=== PATIENT | female | born 1990 | race African-American/Black ===

== ENCOUNTER 2017-04-04 14:39 | Inpatient (IN) | payer OTHER ==
[2017-04-04] MEDS ORDERED: MISOPROSTOL 200 MCG TAB PR (17:00)
[2017-04-04] MEDS ORDERED: IBUPROFEN 600 MG TAB PO (17:00)
[2017-04-04] MEDS ORDERED: BUTORPHANOL 2 MG INJ IV (17:00)
[2017-04-04] MEDS ORDERED: LIDOCAINE 1% (MPF) 30 ML INJ INJ (17:00)
[2017-04-04] MEDS ORDERED: OXYTOCIN 30 UNITS/LR 500 ML IV ×3 (17:00)
[2017-04-04] MEDS ORDERED: CARBOPROST 250 MCG INJ IM (17:00)
[2017-04-04] MEDS: LACTATED RINGER'S 1,000 ML IV ×3 (17:30→23:03)
[2017-04-04] MEDS: AMPICILLIN 2 GM/NS (PMX) 100 ML IV (17:46)
[2017-04-04 18:04] LABS: ADD MAN DIFF? NO
[2017-04-04 18:06] LABS: BASOPHILS % 0.1 % (0.0-2.0); EOSINOPHILS % 0.3 % (0.0-7.0); HEMATOCRIT 41.3 % (37.0-47.0); HEMOGLOBIN 13.8 g/dl (12.0-16.0); LYMPHOCYTES # 1.7 10^3/ul (0.8-2.9); LYMPHOCYTES % 19.3 % (15.0-51.0); MEAN CORPUSCULAR HEMOGLOBIN 30.3 pg (29.0-33.0); MEAN CORPUSCULAR HGB CONC 33.4 g/dl (32.0-37.0); MEAN CORPUSCULAR VOLUME 90.8 fl (82.0-101.0); MEAN PLATELET VOLUME 9.4 fl (7.4-10.4); MONOCYTE # 0.7 10^3/ul (0.3-0.9); MONOCYTES % 7.3 % (0.0-11.0); NEUTROPHIL # 6.4 10^3/ul (1.6-7.5); NEUTROPHILS % 72.7 % (39.0-77.0); PLATELET COUNT 352 10^3/UL (140-415); RED BLOOD COUNT 4.55 10^6/ul (4.20-5.40); RED CELL DISTRIBUTION WIDTH 14.6 % (11.5-14.5)
[2017-04-04 18:06] LABS: WHITE BLOOD COUNT 8.9 10^3/ul (4.8-10.8)
[2017-04-04 18:21] LABS: INR 0.93; PARTIAL THROMBOPLASTIN TIME 28.9 Sec (25.0-35.0); PROTIME 12.5 Sec (11.9-14.9)
[2017-04-04 19:11] LABS: HEPATITIS B SURFACE ANTIGEN NEGATIVE (NEGATIVE)
[2017-04-04] MEDS: AMPICILLIN 1 GM/NS (PMX) 50 ML IV (21:14)
[2017-04-04] MEDS ORDERED: ONDANSETRON 4 MG INJ IV (21:30)
[2017-04-04] MEDS ORDERED: NALOXONE (0.4 MG/ML) INJ IV (21:30)
[2017-04-04] MEDS ORDERED: DIPHENHYDRAMINE 50 MG INJ IV (21:30)
[2017-04-04] MEDS ORDERED: TRIMETHOBENZAMIDE 100 MG/ML VIAL IM (21:30)
[2017-04-04] MEDS ORDERED: FENTAnyl 2MCG/ML-ROPIV 0.2% 100 ML BAG EPI (21:30)
[2017-04-04 21:34] LABS: RAPID PLASMA REAGIN NONREACTIVE (NR)
[2017-04-04] MEDS ORDERED: TERBUTALINE 1 ML (21:52)
[2017-04-04] MEDS: TERBUTALINE 1 MG/ML INJ SC (22:11)
[2017-04-04 22:39] LABS: ALANINE AMINOTRANSFERASE 33 IU/L (13-69); ALBUMIN 3.9 g/dl (3.3-4.9); ALKALINE PHOSPHATASE 149 IU/L (42-121); ANION GAP 16 (8-16); ASPARTATE AMINO TRANSFERASE 33 IU/L (15-46); BILIRUBIN,INDIRECT 0.2 mg/dl (0-1.1); BILIRUBIN,TOTAL 0.2 mg/dl (0.2-1.3); BLOOD UREA NITROGEN 5 mg/dl (7-20); CALCIUM 9.5 mg/dl (8.4-10.2); CARBON DIOXIDE 23 mmol/L (21-31); CHLORIDE 106 mmol/L (97-110); CREATININE 0.49 mg/dl (0.44-1.00); GLUCOSE 80 mg/dl (70-220); POTASSIUM 4.1 mmol/L (3.5-5.1); SODIUM 141 mmol/L (135-144); TOTAL PROTEIN 7.8 g/dl (6.1-8.1); URIC ACID 4.4 mg/dl (3.1-7.9)
[2017-04-04 23:09] LABS: ADD UMIC YES; UR ASCORBIC ACID 40 mg/dL (NEGATIVE); UR BILIRUBIN (Dip) NEGATIVE (NEGATIVE); UR BLOOD (Dip) NEGATIVE (NEGATIVE); UR CLARITY CLEAR (CLEAR); UR COLOR YELLOW (YELLOW); UR GLUCOSE (Dip) NEGATIVE (NEGATIVE); UR KETONES (Dip) 1+ mg/dL (NEGATIVE); UR LEUKOCYTE ESTERASE (Dip) NEGATIVE Leu/ul (NEGATIVE); UR MUCUS FEW /HPF (NONE SEEN); UR NITRITE (Dip) NEGATIVE (NEGATIVE); UR RBC 1 /HPF (0-5); UR SPECIFIC GRAVITY (Dip) 1.024 (1.003-1.030); UR SQUAMOUS EPITHELIAL CELL FEW /HPF (FEW); UR TOTAL PROTEIN (Dip) 1+ mg/dl (NEGATIVE); UR UROBILINOGEN (Dip) NEGATIVE (NEGATIVE); UR WBC 1 /HPF (0-5)
[2017-04-04] MEDS ORDERED: CEFAZOLIN 2 GM/50 ML (PMX) 50 ML IVPB (23:34)
[2017-04-05] MEDS ORDERED: FENTAnyl 50 MCG/ML VIAL (00:10)
[2017-04-05] MEDS ORDERED: METOCLOPRAMIDE 10 MG INJ (00:10)
[2017-04-05] MEDS ORDERED: OXYTOCIN 10 UNIT INJ (00:10)
[2017-04-05] MEDS ORDERED: PHENYLephrine (100 MCG/ML) 5ML SYG (00:10)
[2017-04-05] MEDS ORDERED: morphine SULFATE/PF (10 MG/10 ML) INJ (00:10)
[2017-04-05] MEDS ORDERED: KETAMINE 500 MG INJ (00:29)
[2017-04-05] MEDS: CEFAZOLIN 2 GM/50 ML (PMX) 50 ML IV (00:39)
[2017-04-05] MEDS ORDERED: MIDAZOLAM 1 MG/ML 2 ML INJ (00:56)
[2017-04-05] MEDS: METHYLERGONOVINE 0.2 MG INJ IM (00:56)
[2017-04-05] MEDS ORDERED: EPHEDrine SULFATE 50 MG/5 ML SYG IV (01:00)
[2017-04-05] MEDS ORDERED: IPRATROPIUM (NEB) 0.5 MG/2.5 ML AMP HHN (01:00)
[2017-04-05] MEDS ORDERED: morphine 4 MG/ML VIAL IV (01:00)
[2017-04-05] MEDS ORDERED: MEPERIDINE 25 MG INJ IV (01:00)
[2017-04-05] MEDS ORDERED: hydrALAzine 20 MG INJ IV (01:00)
[2017-04-05] MEDS ORDERED: HYDROmorphONE (0.2 MG/ML) 10ML SYG IV ×3 (01:00)
[2017-04-05] MEDS ORDERED: ONDANSETRON 4 MG INJ IV ×2 (01:00)
[2017-04-05] MEDS ORDERED: LABETALOL HCL 20MG INJ IV (01:00)
[2017-04-05] MEDS ORDERED: ALBUTEROL 0.083% (NEB) 2.5 MG/3 ML AMP HHN (01:00)
[2017-04-05] MEDS ORDERED: TRIMETHOBENZAMIDE 100 MG/ML VIAL IM ×2 (01:00)
[2017-04-05] MEDS ORDERED: NALOXONE (0.4 MG/ML) INJ IV (01:00)
[2017-04-05] MEDS ORDERED: OXYCODONE/ACETAMINOPHEN (5/325) TAB PO ×2 (01:00)
[2017-04-05] MEDS ORDERED: morphine 2 MG INJ IV (01:00)
[2017-04-05] MEDS ORDERED: DIPHENHYDRAMINE 50 MG INJ IV ×2 (01:00)
[2017-04-05] MEDS ORDERED: FENTAnyl 50 MCG/ML VIAL IV ×3 (01:00)
[2017-04-05] MEDS ORDERED: NALBUPHINE HCL (10 MG/1 ML) INJ IV (01:00)
[2017-04-05] MEDS: LACTATED RINGER'S 1,000 ML IV ×3 (01:52→21:14)
[2017-04-05] MEDS ORDERED: OXYTOCIN 30 UNITS/LR 500 ML IV (02:00)
[2017-04-05] MEDS ORDERED: CARBOPROST 250 MCG INJ IM (02:00)
[2017-04-05] MEDS ORDERED: METHYLERGONOVINE 0.2 MG INJ IM (02:00)
[2017-04-05] MEDS ORDERED: MISOPROSTOL 200 MCG TAB PR (02:00)
[2017-04-05] MEDS: KETOROLAC 30 MG INJ IV ×4 (02:29→21:10)
[2017-04-05] MEDS: OXYTOCIN 30 UNITS/LR 500 ML IV ×3 (02:40→11:18)
[2017-04-05] MEDS ORDERED: CHLOROPROCAINE 2% (07:00)
[2017-04-06] MEDS: OXYCODONE/ACETAMINOPHEN (5/325) TAB PO ×4 (00:52→21:07)
[2017-04-06] MEDS: LACTATED RINGER'S 1,000 ML IV (01:52)
[2017-04-06] MEDS: LANOLIN 7 GM TUBE TOP (04:40)
[2017-04-06] MEDS: IBUPROFEN 800 MG TAB PO ×3 (05:43→21:48)
[2017-04-06 09:30] LABS: ADD MAN DIFF? NO
[2017-04-06 09:35] LABS: BASOPHILS % 0.2 % (0.0-2.0); EOSINOPHILS # 0.1 10^3/ul (0.0-0.5); HEMATOCRIT 33.9 % (37.0-47.0); HEMOGLOBIN 11.5 g/dl (12.0-16.0); LYMPHOCYTES % 19.8 % (15.0-51.0); MEAN CORPUSCULAR HEMOGLOBIN 30.9 pg (29.0-33.0); MEAN CORPUSCULAR HGB CONC 33.9 g/dl (32.0-37.0); MEAN CORPUSCULAR VOLUME 91.1 fl (82.0-101.0); MEAN PLATELET VOLUME 9.4 fl (7.4-10.4); MONOCYTE # 0.9 10^3/ul (0.3-0.9); MONOCYTES % 9.4 % (0.0-11.0); NEUTROPHILS % 69.4 % (39.0-77.0); PLATELET COUNT 318 10^3/UL (140-415); RED BLOOD COUNT 3.72 10^6/ul (4.20-5.40); RED CELL DISTRIBUTION WIDTH 14.9 % (11.5-14.5)
[2017-04-07] MEDS: OXYCODONE/ACETAMINOPHEN (5/325) TAB PO ×3 (02:15→16:11)
[2017-04-07] MEDS: IBUPROFEN 800 MG TAB PO ×3 (05:27→22:05)
[2017-04-08] MEDS: OXYCODONE/ACETAMINOPHEN (5/325) TAB PO ×2 (00:47→11:39)
[2017-04-08] MEDS: IBUPROFEN 800 MG TAB PO ×2 (05:37→14:32)
[2017-04-08] MEDS ORDERED: DIPHTH/TET/ACEL PERTUSS (ADULT) 0.5 ML VIAL IM* (09:00)
[2017-04-08] MEDS: NA PHOSPHATE/BIPHOS 133 ML ENEMA PR (10:50)
== END 2017-04-08 19:15 | disposition home or self-care (01) | DRG 765 ==
LOC: OBT 14:39 → PP1 04-05 05:15 → L-D 14:40 → PP1 04-05 16:33 → OBT 16:34 → L-D 16:25
PROVIDERS: Obstetrics & Gynecology
PROC: 10D00Z1 Extraction of Products of Conception, Low, Open Approach (ICD-10-PCS; principal; 2017-04-04)
DX: O76 Abnormality in fetal heart rate and rhythm complicating labor and delivery (principal); Z68.42 Body mass index [BMI] 45.0-49.9, adult; O99.214 Obesity complicating childbirth; E66.01 Morbid (severe) obesity due to excess calories; Z3A.39 39 weeks gestation of pregnancy; Z37.0 Single live birth
CPT/HCPCS: 62319; 80053; 81001; 84560; 85025; 85384; 85610; 85730; 86592; 86850; 86900; 86901; 87340; 99464; J2400